=== PATIENT | male | born 1965 | race Caucasian/White ===

== ENCOUNTER 2018-04-26 16:01 | Emergency (ER) | payer BC ==
[~2018-04-26] VITALS: Ht 182.9 cm; Wt 122.7 kg
[2018-04-26 16:04] VITALS: Ht 182.9 cm; Wt 122.7 kg
[2018-04-26] MEDS ORDERED: GLUCOPHAGE500 MG PO (16:08)
[2018-04-26] MEDS ORDERED: GLUCOTROL 5 MG T5 MG PO (16:09)
[2018-04-26] MEDS ORDERED: ZOCOR20 MG PO (16:09)
[2018-04-26] MEDS ORDERED: PRINIVIL20 MG PO (16:09)
[2018-04-26 16:45] LABS: APPEARANCE CLOUDY (CLEAR); BILIRUBIN NEGATIVE (NEGATIVE); COLOR DK YELLOW (YELLOW); GLUCOSE 100 mg/dL (NEGATIVE); KETONE NEGATIVE (NEGATIVE); NITRITE NEGATIVE (NEGATIVE); PROTEIN 1+ mg/dL (NEGATIVE); SPECIFIC GRAVITY 1.025 (1.005-1.020); UROBILINOGEN NORMAL (NORMAL)
[2018-04-26 16:57] LABS: WHITE CELLS - URINE 0-5 /hpf (0-5)
[2018-04-26 16:59] LABS: BACTERIA FEW /hpf (NONE SEEN); EPITHELIAL CELLS 0-5 /hpf (0-5)
[2018-04-26 17:00] LABS: RED CELLS - URINE 0-5 /hpf (0-5)
[2018-04-26 17:00] LABS: BASOPHILS 0.3 % (0-2); EOSINOPHILS 0 % (0-7); HEMATOCRIT 45.4 % (42.0-54.0); HEMOGLOBIN 16.4 g/dL (13.5-17.5); IMMATURE GRANULOCYTES 0.3 % (0-5); LYMPHOCYTES 8.9 % (15-50); MCH 33.3 pg (26.0-34.0); MCHC 36.1 g/dL (31.0-37.0); MCV 92.1 fL (80.0-100.0); MEAN PLATELET VOLUME 9.8 fL (7.4-10.4); NEUTROPHILS 79.5 % (40-80); PLATELET COUNT 113 10x3/uL (130-400); RBC 4.93 10x6/uL (4.20-6.10); RDW 14.2 % (11.5-14.5); WBC 10.5 10x3/uL (4.8-10.8)
[2018-04-26 17:29] LABS: ALBUMIN 3.9 g/dL (3.4-5.0); ANION GAP 18.4 mmol/L (8-16); BILIRUBIN - TOTAL 0.9 mg/dL (0.2-1.3); CARBON DIOXIDE 22.3 mmol/L (21.0-32.0); CREATININE - SERUM 1.4 mg/dL (0.6-1.3); POTASSIUM - SERUM 3.7 mmol/L (3.5-5.1)
[2018-04-26] MEDS ORDERED: ZOFRAN8 MG PO (20:19)
[2018-04-26] MEDS ORDERED: LOMOTIL TABLET1 TAB PO (20:19)
[2018-04-27 02:34] VITALS: BP 131/66
== END 2018-04-26 20:31 | disposition home or self-care (01) ==
LOC: D.ER 16:01
PROVIDERS: Family Medicine
DX: K52.9 Noninfective gastroenteritis and colitis, unspecified (principal); R11.2 Nausea with vomiting, unspecified; R19.7 Diarrhea, unspecified; F17.200 Nicotine dependence, unspecified, uncomplicated